=== PATIENT | male | born 1970 | race Caucasian/White ===

== ENCOUNTER 2018-12-19 05:21 | Inpatient (IN) | payer MEDICAID ==
[~2018-12-19] VITALS: Ht 177.8 cm; Wt 79.4 kg
[~2018-12-19 05:21] MED LIST: LACTATED RINGERS 1,000 ML IV SCH
[2018-12-19] MEDS ORDERED: FLUT1DIS3 IH (06:24)
[2018-12-19] MEDS ORDERED: IBUP-2029 PO (06:24)
[2018-12-19] MEDS ORDERED: PROT40 PO (06:24)
[2018-12-19] MEDS ORDERED: ONDANSETRON HCL 4MG/2ML INJ ONE ×3 (07:17→08:55)
[2018-12-19] MEDS ORDERED: PROPOFOL 200MG/20ML VIAL IV ONE (07:17)
[2018-12-19] MEDS ORDERED: FENTANYL CITRATE/PF 50MCG/ML 2ML VIAL ONE (07:17)
[2018-12-19] MEDS ORDERED: MIDAZOLAM HCL 2 MG/2 ML VIAL ONE (07:17)
[2018-12-19] MEDS ORDERED: ROCURONIUM BROMIDE 10MG/ML VIAL 5ML IV ONE (07:18)
[2018-12-19] MEDS ORDERED: NEOSTIGMINE METHYLSULFATE 1MG/ML 10 ML VIAL ONE (07:18)
[2018-12-19] MEDS ORDERED: GLYCOPYRROLATE 0.2 MG/ML 2ML VIAL ONE (07:18)
[2018-12-19] MEDS ORDERED: BUPIVACAINE HCL 0.5% (5MG/ML) 50ML ONE (07:23)
[2018-12-19] MEDS ORDERED: EPINEPHRINE 1:1000 1 MG/ML AMP ONE (07:29)
[2018-12-19] MEDS ORDERED: BUPIVACAINE/EPINEPH/PF 0.25%/0.0005 10ML ONE ×2 (07:29→08:59)
[2018-12-19] MEDS ORDERED: BACITRACIN 50,000 UNITS/VIAL ONE (07:30)
[2018-12-19] MEDS ORDERED: MORPHINE SULFATE/PF 1MG/ML 10ML AMP ONE (07:34)
[2018-12-19] MEDS ORDERED: CEFAZOLIN SODIUM 1000MG/VIAL ONE (08:15)
[2018-12-19] MEDS ORDERED: METOCLOPRAMIDE HCL 10MG/2ML VIAL ONE (08:55)
[2018-12-19] MEDS ORDERED: KETOROLAC 30MG/ML VIAL ONE (10:39)
[2018-12-19] MEDS ORDERED: HYDROMORPHONE HCL/PF 2MG/ML CPJ IV PRN (11:30)
[2018-12-19] MEDS ORDERED: ONDANSETRON HCL 4MG/2ML INJ IV PRN (11:30)
[2018-12-19] MEDS ORDERED: MEPERIDINE HCL/PF 25MG/ML CPJ IV PRN (11:30)
[2018-12-19] MEDS ORDERED: MORPHINE SULFATE 4 MG/ML CPJ (NOT FOR IM USE) IV PRN ×2 (11:45)
[2018-12-19] MEDS ORDERED: HYDROCODONE/ACETAMINOPHEN 10/325MG TABLET PO PRN (11:45)
[2018-12-19] MEDS ORDERED: ACETAMINOPHEN 325MG TABLET PO PRN (11:45)
[2018-12-19 13:00] VITALS: BP_SYST 110; BP_SYST 117; BP_DIAS 60; BP_DIAS 87
[2018-12-19] MEDS: ONDANSETRON HCL 4MG/2ML INJ IV PRN ×2 (13:50→20:33)
[2018-12-19 15:50] VITALS: BP 124/70
[2018-12-19] MEDS: CEFAZOLIN 2,000 MG in DEXT 5% WATER 100 ML IV SCH (16:39)
[2018-12-19 20:00] VITALS: BP 136/72
[2018-12-19] MEDS ORDERED: ZOLPIDEM TARTRATE 5MG TABLET PO PRN (21:00)
[2018-12-20] VITALS: BP 127/63
[2018-12-20] MEDS: CEFAZOLIN 2,000 MG in DEXT 5% WATER 100 ML IV SCH (00:15)
[2018-12-20] MEDS: HYDROCODONE/ACETAMINOPHEN 10/325MG TABLET PO PRN ×2 (02:20→09:30)
[2018-12-20 04:00] VITALS: BP 142/88
[2018-12-20] MEDS: ONDANSETRON HCL 4MG/2ML INJ IV PRN (04:33)
[2018-12-20 08:00] VITALS: BP 161/89
[2018-12-20 10:18] VITALS: BP 140/74
== END 2018-12-20 11:22 | disposition home or self-care (01) | DRG 315 ==
LOC: OR 05:21 → 6EST 05:22
PROVIDERS: ADMIT Orthopaedic Surgery; ATTEND Orthopaedic Surgery
PROC: 0PBB4ZZ Excision of Left Clavicle, Percutaneous Endoscopic Approach (ICD-10-PCS; principal; 2018-12-19)
PROC: 0LB24ZZ Excision of Left Shoulder Tendon, Percutaneous Endoscopic Approach (ICD-10-PCS; 2018-12-19)
PROC: 0RBK4ZZ Excision of Left Shoulder Joint, Percutaneous Endoscopic Approach (ICD-10-PCS; 2018-12-19)
DX: M75.122 Complete rotator cuff tear or rupture of left shoulder, not specified as traumatic (principal); B19.20 Unspecified viral hepatitis C without hepatic coma; F12.90 Cannabis use, unspecified, uncomplicated; K21.9 Gastro-esophageal reflux disease without esophagitis; J44.9 Chronic obstructive pulmonary disease, unspecified; G89.29 Other chronic pain; J45.909 Unspecified asthma, uncomplicated; M65.812 Other synovitis and tenosynovitis, left shoulder; M75.50 Bursitis of unspecified shoulder; M19.012 Primary osteoarthritis, left shoulder
CPT/HCPCS: 72040; 88304; 88311; 97166; A4565; C1713; J0171; J0690; J1170; J1885; J2250; J2274; J2405; J2704; J2710; J2765; J3010; J3490; J7060